=== PATIENT | female | born 1995 | race Caucasian/White ===

== ENCOUNTER 2017-09-02 11:10 | Emergency (ER) | payer OTHER ==
[2017-09-02 11:25] VITALS: BMI 40.0
--- NOTE | 2017-09-02 11:36 | PDOC ---
History of Present Illness - General Chief Complaint: Respiratory Stated Complaint: COUGH Time Seen by Provider: 09/02/17 11:29 - History of Present Illness Initial Comments: 09/02/17 12:01 Chief complaint: Sensation of foreign body right side of throat History of present illness: Patient awoke with a sensation of a foreign body in her throat, right side. She became anxious and felt that she couldn't breathe or swallow. Review of systems: Denies chest pain, abdominal pain, nausea, vomiting, diarrhea , visual or focal neurologic symptoms, unsteadiness of gait, fever or chills, recent URI symptoms, sore throat. Complains of chronic cough for several months associated with asthma. Past medical history: As noted above, chronic cough for several months, treated with multiple doses of antibiotics including Augmentin and Levaquin, as well as 4 courses of Medrol. Asthma since childhood, but seems to be less severe now. Maintained on albuterol rescue inhaler only. No recent emergency room visits, hospitalizations. Never intubated. Otherwise noncontributory Social history: Does not smoke drink or use drugs. Student, with 2 jobs, admits a lot of stress, anxiety. Has had anxiety/panic attacks in the past Family history: Reviewed and noncontributory Physical exam: Alert and oriented, moderately obese, no acute distress, cheerful and cooperative, except for refusing a throat culture. No tachypnea or dyspnea. No stridor, drooling, or wheezing. Afebrile, mildly tachycardic, probably from anxiety, mildly elevated blood pressure, probably from anxiety as well. Respiratory rate and oxygen saturation are normal HEENT: Mild pharyngeal injection bilaterally, mildly enlarged right tonsil, which is probably causing the irritation. No exudate, other swelling, or mass. Airway is fully patent. No stridor or drooling Neck supple without bruit mass or nodes Lungs clear with full breath sounds throughout bilaterally. No wheezes rales or rhonchi CV S1 and S2 normal without murmur or gallop pulses full and symmetric no JVD or edema Abdomen soft nontender without mass or organomegaly Neurological intact. Gait stable and unimpaired Extremities no CCE Skin clear, no rash, adequate turgor and wet mucous membranes Impression: Mildly enlarged right tonsil causing throat irritation. However, patient denies sore throat, fever, or other URI symptoms. Multiple recent courses of antibiotics and steroids for presumed strep and bronchitis. This is likely a viral superinfection or just and immunological reaction of the tonsillar lymph tissue Plan: Strep screen was strongly advised, however, due to her anxiety and fear, the patient refused to cooperate. Even with prolonged reassurance and discussion , it was not possible to convince the patient to undergo a throat swab. Advised rest, fluids, Tylenol or Motrin, gargling with warm salt water. Patient and her parents were advised to return to the ER immediately if there was any difficulty swallowing or breathing, or there was any chest pain, shortness of breath, noisy breathing, wheezing, drooling, or other significant symptoms developing. Fully ambulatory, in no distress, with no throat discomfort at discharge to follow-up as directed. Past History - Past Medical History Allergies/Adverse Reactions: Allergies Allergy/AdvReac Type Severity Reaction Status Date / Time No Known Allergies Allergy Verified 09/02/17 11:18 Home Medications: Ambulatory Orders Albuterol Sulfate Inhaler - [Ventolin Hfa Inhaler -] 1 - 2 inh PO QID PRN Asthma: Yes COPD: No - Immunization History Td Vaccination: Yes Immunization Up to Date: Yes - Suicide/Smoking/Psychosocial Hx Smoking Status: No Smoking History: Never smoked Have you smoked in the past 12 months: No Number of Cigarettes Smoked Daily: 0 Hx Alcohol Use: No Drug/Substance Use Hx: No Substance Use Type: None *Physical Exam - Vital Signs Last Vital Signs Temp Pulse Resp BP Pulse Ox 98.2 F 120 H 18 147/95 99 09/02/17 11:17 09/02/17 11:17 09/02/17 11:17 09/02/17 11:17 09/02/17 11:17 *DC/Admit/Observation/Transfer Diagnosis at time of Disposition: Inflammatory disorder of upper respiratory tract - Discharge Dispostion Disposition: HOME Condition at time of disposition: Stable Admit: No - Referrals Referrals: Crystal Robledo MD [Primary Care Provider] - 3 days - Patient Instructions Printed Discharge Instructions: DI for Viral Pharyngitis Additional Instructions: Avoid the cold, gargle with warm salt water, Tylenol or Motrin as needed for pain, See primary physician for follow-up 2-3 days. Return to ER if there is any further difficulty swallowing or breathing. - Post Discharge Activity Forms/Work/School Notes: Back to Work
[2017-09-02 12:04] VITALS: BP 141/92; PULSE 113; TEMP 98.6
== END 2017-09-02 12:15 | disposition home or self-care (01) ==
LOC: FER 11:10
DX: J06.9 Acute upper respiratory infection, unspecified (principal); J45.909 Unspecified asthma, uncomplicated
CPT/HCPCS: 99282-25